=== PATIENT | female | born 1950 | race Caucasian/White ===

== ENCOUNTER → 2017-07-18 | Outpatient (CLI) | payer OTHER | LOC: M.RAD 13:14 | DX: Z12.31 Encounter for screening mammogram for malignant neoplasm of breast (principal); Z78.0 Asymptomatic menopausal state ==

== ENCOUNTER → 2020-01-01 | Outpatient (CLI) | payer MEDICARE, OTHER | LOC: M.RAD 12-11 08:24 | PROVIDERS: ATTEND Nurse Practitioner Family | DX: Z12.31 Encounter for screening mammogram for malignant neoplasm of breast (principal); M81.0 Age-related osteoporosis without current pathological fracture; M85.812 Other specified disorders of bone density and structure, left shoulder; M19.012 Primary osteoarthritis, left shoulder; Z78.0 Asymptomatic menopausal state ==

== ENCOUNTER → 2021-01-05 | Outpatient (CLI) | payer MEDICARE, OTHER ==
--- NOTE | 2021-01-05 10:17 | 2DMMODE ---
[place] [address] 2 D/M-MODE ECHOCARDIOGRAM Name: CARA CURTIS Room: [facility]#: [id number] Admission: 01/05/21 Attend Phys: JESÚS ROJAS Discharge: Date of : 48 Date of Service: 01/05/21 1017 Report #: [id number] THIS REPORT FOR: cc: JESÚS FOSTER NP, KATHERINE NP Liston, Michael J. MD [facility] ~ APPROVED REPORT Study performed: 01/05/2021 09:10:38 EXAM: Comprehensive 2D, Doppler, and color-flow Echocardiogram Patient Location: Out-Patient BSA: 1.66 HR: 72 bpm BP: 120/70 mmHg Other Information Study Quality: Good Indications Palpitations 2D Dimensions IVSd: 9.22 (7-11mm) LVOT Diam: 19.53 (18-24mm) LVDd: 40.31 mm PWd: 8.53 (7-11mm) Ascending Ao: 28.18 (22-36mm) LVDs: 27.06 (25-40mm) Aortic Root: 29.31 mm Volumes Left Atrial Volume (Systole) LA ESV Index: 12.10 mL/m2 Aortic Valve AoV Peak Hiram.: 2.73 m/s AO Peak Gr.: 29.85 mmHg LVOT Max P.99 mmHg AO Mean Gr.: 17.75 mmHg LVOT Mean P.80 mmHg LVOT Max V: 1.00 m/s AO V2 VTI: 61.08 cm LVOT Mean V: 0.61 m/s SHELTON (VTI): 1.16 cm2 LVOT V1 VTI: 23.58 cm Mitral Valve E/A Ratio: 1.11 [place] [address] 2 D/M-MODE ECHOCARDIOGRAM Name: CARA CURTIS Room: [facility]#: [id number] Admission: 01/05/21 Attend Phys: JESÚS ROJAS Discharge: Date of : 48 Date of Service: 01/05/21 1017 Report #: [id number] MV Decel. Time: 186.47 ms MV E Max Hiram.: 0.95 m/s MV PHT: 54.08 ms MVA (PHT): 4.07 cm2 TDI E/Lateral E': 7.92 E/Medial E': 6.33 Medial E' Hiram.: 0.15 m/s Lateral E' Hiram.: 0.12 m/s Pulmonary Valve PV Peak Hiram.: 1.52 m/s PV Peak Gr.: 9.30 mmHg Tricuspid Valve RAP Estimate: 5.00 mmHg TR Peak Gr.: 21.80 mmHg RVSP: 26.80 mmHg PA Pressure: 26.80 mmHg Left Ventricle The left ventricle is normal size. There is normal LV segmental wall motion. There is normal left ventricular wall thickness. Left ventricular systolic function is normal. LVEF is 55-60%. Grade I - abnormal relaxation pattern. Right Ventricle The right ventricle is normal size. The right ventricular systolic function is normal. Atria The left atrium size is normal. The right atrium size is normal. Aortic Valve Moderate aortic valve sclerosis. Trace aortic regurgitation. Moderate aortic stenosis. Mitral Valve Mild mitral annular calcification. Mild mitral regurgitation. No evidence of mitral valve stenosis. Tricuspid Valve The tricuspid valve is normal in structure. Mild tricuspid regurgitation. No pulmonary hypertension. Pulmonic Valve The pulmonary valve is normal in structure. There [place] [address] 2 D/M-MODE ECHOCARDIOGRAM Name: EVERCARA Room: [facility]#: [id number] Admission: 01/05/21 Attend Phys: JESÚS ROJAS Discharge: Date of : 48 Date of Service: 01/05/21 1017 Report #: [id number] valvular regurgitation. Great Vessels The aortic root is normal in size. IVC is normal in size and collapses >50% with inspiration. Pericardium There is no pericardial effusion. <Conclusion> The left ventricle is normal size. There is normal left ventricular wall thickness. Left ventricular systolic function is normal. LVEF is 55-60%. Grade I - abnormal relaxation pattern. There is normal LV segmental wall motion. Moderate aortic valve sclerosis. Trace aortic regurgitation. Moderate aortic stenosis. Mild mitral regurgitation. Mild tricuspid regurgitation. No pulmonary hypertension. IVC is normal in size and collapses >50% with inspiration. <ELECTRONICALLY SIGNED> By: Bayron You MD, FACC 01/05/21 1017 101 Bayron You MD, FACC /INF
== END ==
LOC: M.CRD 12-30 16:32
PROVIDERS: ATTEND Nurse Practitioner Family
DX: Z12.31 Encounter for screening mammogram for malignant neoplasm of breast (principal); I08.3 Combined rheumatic disorders of mitral, aortic and tricuspid valves; R00.2 Palpitations